=== PATIENT | male | born 1990 | race Caucasian/White ===

== ENCOUNTER 2020-02-15 15:28 | Emergency (ER) | payer BC ==
[2020-02-15 15:39] VITALS: BP 150/66
--- NOTE | 2020-02-15 16:01 | ED Physician Documentation ---
PD HPI UPPER EXT INJURY - Stated complaint Stated Complaint: L HAND INJURY - Chief complaint Chief Complaint: Ext Problem - History obtained from History obtained from: Patient - History of Present Illness Location: Left, Finger (4th) Timing - details: Gradual onset Pain level max: 6 Improved by: Rest Worsened by: Moving, Palpating - Additonal information Additional information: 29-year-old male states that he was at a [employer] with friends last night, he was drinking does not recall any injury but woke up this morning with pain to the distal aspect of the left fourth digit. Worse with movement and better with rest. There is swelling as well. No drainage. No numbness or tingling. Patient is right-handed Review of Systems Neurologic: denies: Focal weakness, Numbness PD PAST MEDICAL HISTORY - Past Medical History Past Medical History: No - Present Medications Home Medications: Ambulatory Orders Medication Instructions Recorded Confirmed Ibuprofen [Motrin] 800 mg PO Q8H PRN #30 tablet 02/15/20 - Allergies Allergies/Adverse Reactions: Allergies Allergy/AdvReac Type Severity Reaction Status Date / Time No Known Drug Allergies Allergy Verified 02/15/20 15:37 - Living Situation Living Arrangement: reports: At home - Social History Does the pt drink ETOH?: Yes - Family History Family history: reports: Non contributory PD ED PE NORMAL - Vitals Vital signs reviewed: Yes - General General: Alert and oriented X 3, No acute distress - HEENT HEENT: Moist mucous membranes - Derm Derm: Warm and dry - Extremities Extremities: Other (Left fourth digit - Tenderness and swelling around the DIP joint. Neurovascularly intact. Limited range of motion secondary to swelling and pain. Unable to fully test the tendon, but does seem to be able to fully extend the finger.) - Neuro Neuro: Alert and oriented X 3 Results - Vitals Vitals: Vital Signs - 24 hr 02/15/20 15:35 Temperature 37.3 C Heart Rate 93 Respiratory 18 Rate Blood Pressure 150/66 H O2 Saturation 98 Oxygen O2 Source Room air - Rads (name of study) Left hand x-ray Radiology: Prelim report reviewed, EMP read contemporaneously, See rad report (No acute abnormality) PD MEDICAL DECISION MAKING - ED course Complexity details: reviewed results, considered differential, d/w patient ED course: Concern for possible tendon injury over the DIP joint of the left fourth digit. No acute findings on x-ray. Placed in an extension splint. We will have him follow-up with his doctor and/or orthopedics for repeat evaluation. This should be done once the swelling has decreased. There is no subungual hematoma. No felon. No paronychia. Patient counseled regarding signs and symptoms for which I believe and urgent re-evaluation would be necessary. Patient with good u nderstanding of and agreement to plan and is comfortable going home at this time This document was made in part using voice recognition software. While efforts are made to proofread this document, sound alike and grammatical errors may occur. Departure - Departure Disposition: Home, Self Care Clinical Impression: Sprain of finger of left hand Qualifiers: Encounter type: initial encounter Finger: ring finger Sprain of finger site: interphalangeal joint Qualified Code(s): S63.635A - Sprain of interphalangeal joint of left ring finger, initial encounter Condition: Good Instructions: ED Sprain Finger Follow-Up: [facility] [Provider Group] - Within 1 week Prescriptions: Ibuprofen [Motrin] 800 mg PO Q8H PRN #30 tablet PRN Reason: PAIN &/OR FEVER Comments: You can either follow-up with your doctor in 1 week or with orthopedics. You should be reevaluated when the swelling has decreased. It is possible that you injured the tendon at the end of your finger, this is difficult to test today because of the swelling and pain. You can use Motrin or Tylenol for pain. Stay in the splint. Discharge Date/Time: 02/15/20 16:37
--- NOTE | 2020-02-15 16:13 | XRAY Report ---
PROCEDURE: Hand 3 View LT INDICATIONS: Trauma. Pain at fourth DIP joint. TECHNIQUE: 3 views of the hand(s) acquired. COMPARISON: None FINDINGS: Bones: No fractures or dislocations. No suspicious bony lesions. Soft tissues: No suspicious soft tissue calcifications. IMPRESSION: No evidence of acute bony abnormality of the left hand. Reviewed by: Vini Payan MD on 02/15/2020 3:12 PM JAN Approved by: Vini Payan MD on 02/15/2020 3:12 PM [email or web address] Station ID: [id number]
[2020-02-15] MEDS ORDERED: IBUPROFEN 800 MG TABLET PO STA (16:18)
== END 2020-02-15 16:37 | disposition home or self-care (01) ==
LOC: ED 15:28
DX: S63.635A Sprain of interphalangeal joint of left ring finger, initial encounter (principal); X58.XXXA Exposure to other specified factors, initial encounter; Y93.83 Activity, rough housing and horseplay
CPT/HCPCS: 73130; 99283; A9270